=== PATIENT | male | born 1995 | race African-American/Black ===

== ENCOUNTER 2021-05-09 19:44 | Emergency (ER) | payer OTHER ==
[2021-05-09 20:23] VITALS: BP 132/78; PULSE 72; TEMP 98; BMI 39.5
== END 2021-05-09 22:40 | disposition home or self-care (01) ==
LOC: JERFT 19:44 → JER 19:44 → JERFT 22:40
DX: R51.9 Headache, unspecified (principal)
CPT/HCPCS: 70450-TC; 99281-25